=== PATIENT | female | born 1995 | race Caucasian/White ===

== ENCOUNTER 2020-03-22 04:01 | Emergency (ER) | payer SELFPAY ==
[~2020-03-22] VITALS: Ht 167.6 cm; Wt 59.0 kg
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
--- NOTE | 2020-03-22 04:16 | NUR ---
DR PATTON LEFT FOR CT.
--- NOTE | 2020-03-22 04:16 | NUR ---
PT LEFT FOR CT VIA GURNEY. SO WENT WITH THE PT.
--- NOTE | 2020-03-22 04:25 | NUR ---
PT RETURNED FROM CT.
--- NOTE | 2020-03-22 04:38 | NUR ---
CALLING [facility]: CXR AND NECK CT.
--- NOTE | 2020-03-22 04:46 | NUR ---
PT APPEARED COLD. PT REC'D 2 WARM BLANKETS.
--- NOTE | 2020-03-22 04:48 | NUR ---
Patient discharged to [facility] in stable condition. Written and verbal after care instructions given. Patient verbalizes understanding of instruction. PT LEFT WITH [employer]. VSS
[2020-03-22 04:52] VITALS: BP 111/64
== END 2020-03-22 04:52 ==
LOC: ER 04:02
DX: R09.89 Other specified symptoms and signs involving the circulatory and respiratory systems (principal); R06.02 Shortness of breath; M54.2 Cervicalgia; Z88.5 Allergy status to narcotic agent
CPT/HCPCS: 70490-TC; 71045-TC